=== PATIENT | female | born 2000 | race Caucasian/White ===

== ENCOUNTER 2020-04-03 20:48 | Emergency (ER) | payer BC ==
[~2020-04-03] VITALS: Ht 170.2 cm; Wt 59.0 kg
[2020-04-03 20:59] VITALS: BP_SYST 128
== END 2020-04-03 23:56 | disposition home or self-care (01) ==
LOC: SED 20:48
DX: S83.91XA Sprain of unspecified site of right knee, initial encounter (principal); W21.02XA Struck by soccer ball, initial encounter; Y93.66 Activity, soccer; Y92.89 Other specified places as the place of occurrence of the external cause; Y99.8 Other external cause status
CPT/HCPCS: 73564; 99283

== ENCOUNTER 2020-04-29 18:17 | Emergency (ER) | payer BC ==
[~2020-04-29] VITALS: Ht 170.2 cm; Wt 56.7 kg
[2020-04-29 18:17] VITALS: BP_SYST 121
[2020-04-29] MEDS ORDERED: DIPHENHYDRAMINE INJ 50 MG/ML VIAL IVP ONE (18:30)
[2020-04-29] MEDS ORDERED: FAMOTIDINE PF 20 MG/2 ML VIAL IVP ONE (18:30)
[2020-04-29] MEDS ORDERED: NACL 0.9% 1,000 ML IV ONE (18:30)
[2020-04-29] MEDS ORDERED: EPINEPHrine 1 MG/ML AMP IM ONE (18:30)
[2020-04-29] MEDS ORDERED: methylPREDNISolone SOD SUCC/PF 62.5 MG/ML VIAL IVP ONE (18:30)
[2020-04-29] MEDS ORDERED: EPINEPHrine 1 MG/ML AMP ONE (18:39)
[2020-04-29 19:44] LABS: BASOPHILS % (AUTO) 0.2 % (0.0-2.0); EOSINOPHILS % (AUTO) 0.4 % (0.0-4.0); HEMATOCRIT 44.1 % (36-48); HEMOGLOBIN 14.2 g/dL (12.0-16.0); LYMPHOCYTES # (AUTO) 3.9 K/uL (1.0-5.5); LYMPHOCYTES % (AUTO) 48.7 % (20.5-51.5); MEAN CORPUSCULAR HEMOGLOBIN 31 pg (27-31); MEAN CORPUSCULAR HGB CONC 32 % (32-36); MEAN CORPUSCULAR VOLUME 96 fL (79.0-98.0); MONOCYTES # (AUTO) 0.4 K/uL (0.0-1.0); MONOCYTES % (AUTO) 5.3 % (1.7-9.3); NEUTROPHILS # (AUTO) 3.7 K/uL (1.8-7.7); NEUTROPHILS % (AUTO) 45.4 % (40.0-70.0); PLATELET COUNT (AUTO) 269 K/uL (130-430); RED BLOOD CELL COUNT(AUTO) 4.61 MIL/uL (4.2-6.2); RED CELL DISTRIBUTION WIDTH 14.2 % (9.0-15.0); WHITE BLOOD COUNT (AUTO) 8.1 K/uL (4.5-11.0)
[2020-04-29 19:50] LABS: CALCIUM 8.2 mg/dL (8.4-11.0); CREATININE 0.9 mg/dL (0.55-1.30); POTASSIUM 3.2 mmol/L (3.5-5.1)
[2020-04-29 19:55] LABS: ALBUMIN 3.5 g/dL (3.4-4.8); TOTAL BILIRUBIN 0.6 mg/dL (0.0-1.0)
[2020-04-29 21:15] VITALS: BP_SYST 117
== END 2020-04-29 21:15 | disposition home or self-care (01) ==
LOC: SED 18:17
DX: L50.8 Other urticaria (principal)
CPT/HCPCS: 36415; 80053; 85025; 96372; 96374; 96375; 99284; J0171; J1200; J2930; J3490; J7030